=== PATIENT | female | born 1985 | race Caucasian/White ===

== ENCOUNTER 2022-03-18 19:02 | Emergency (ER) | payer OTHER, MEDICARE | END 2022-03-18 19:51 | disposition home or self-care (01) | LOC: MADERS 19:02 | DX: S90.02XA Contusion of left ankle, initial encounter (principal); S90.32XA Contusion of left foot, initial encounter; F17.210 Nicotine dependence, cigarettes, uncomplicated; W20.8XXA Other cause of strike by thrown, projected or falling object, initial encounter; Y92.512 Supermarket, store or market as the place of occurrence of the external cause; Z79.899 Other long term (current) drug therapy ==